=== PATIENT | male | born 1950 | race Caucasian/White ===

== ENCOUNTER 2025-01-23 14:28 | Emergency (ER) | payer MEDICARE ==
[2025-01-23] MEDS: Diphtheria,Pertussis(Acell),Tetanus Vaccine 0.5 ML Syringe IM ONE (15:54)
== END 2025-01-23 17:00 | disposition home or self-care (01) ==
LOC: JP.ED 14:28
DX: S81.832A Puncture wound without foreign body, left lower leg, initial encounter (principal); Z23 Encounter for immunization; W56.52XA Struck by other fish, initial encounter; Y93.89 Activity, other specified
CPT/HCPCS: 90471; 90715; 99283-25